=== PATIENT | male | born 1985 | race Caucasian/White ===

== ENCOUNTER 2017-09-27 06:09 | Emergency (ER) | payer OTHER ==
[~2017-09-27] VITALS: Ht 182.9 cm; Wt 99.8 kg
[2017-09-27 06:16] VITALS: BP 151/90
--- NOTE | 2017-09-27 06:19 | NUR ---
TO BED # 4 DAYA GIVENS , REPORT GIVEN TO PARADISE RAIN
--- NOTE | 2017-09-27 06:30 | NUR ---
31 YO M TO ER FOR LBP. PT STATES LBP STARTED X1HR AGO WHILE DRIVING. 3/10 PAIN. ACHING, SHOOTING DOWN BILAT LEGS. PT STATES X3 YR CHRONIC LBP, FEELS THAT PAIN IS INTERMITTENT AND GOES UPTO A 5/10. INCREASED PAIN WITH SITTING AND LAYING. GREATER PAIN ON L LEG. NO OTHER MEDICAL C/O AT THIS TIME. ER MADE AWEARE
--- NOTE | 2017-09-27 06:47 | NUR ---
PT PREFERS TO STAND DUE TO PAIN
--- NOTE | 2017-09-27 07:20 | NUR ---
REPORT GIVEN TO JENNIFER RAIN FOR CONTINUITY OF CARE
--- NOTE | 2017-09-27 07:25 | NUR ---
PATIENT BACK FROM XR
--- NOTE | 2017-09-27 07:36 | NUR ---
PATIENT STILL WITH MINIMAL LOW BACK PAIN. AWAITING FOR DISPO. PATIENNT MORE COMFORTABLE STANDING UP.
[2017-09-27 07:51] VITALS: BP 144/99
== END 2017-09-27 07:51 | disposition home or self-care (01) ==
LOC: MED 06:09
DX: S63.601A Unspecified sprain of right thumb, initial encounter (principal); M54.40 Lumbago with sciatica, unspecified side; R03.0 Elevated blood-pressure reading, without diagnosis of hypertension; F12.90 Cannabis use, unspecified, uncomplicated; X58.XXXA Exposure to other specified factors, initial encounter; Y93.89 Activity, other specified; Y92.89 Other specified places as the place of occurrence of the external cause; Y99.8 Other external cause status
CPT/HCPCS: 29125; 73140; 99284; Q0092